=== PATIENT | male | born 1960 | race African-American/Black ===

== ENCOUNTER 2016-11-05 11:13 | Day surgery (SDC) | payer BC ==
[2016-11-05 11:44] VITALS: BMI 26.0
[2016-11-05 12:30] VITALS: TEMP 97.6
[2016-11-05 12:35] VITALS: PULSE 62
[2016-11-05 13:01] VITALS: BP 123/77
--- NOTE | 2016-11-06 11:42 | PATH ---
Surgical Pathology Report Patient Name: ROHINI FERRIS [facility]. Rec. #: [id number] /Age/Gender: 1960 (Age: 56) / M Account: [id number] Location: U-ENDOSCOPY Taken: 11/05/2016 Received: 11/05/2016 Reported: 11/06/2016 Physicians: Yehuda Gonzalez D.O. Specimen(s) Received A: POLYP RECTOSIGMOID B: BX POLYP Clinical History History of polyp Rectosigmoid polyps, anorectal polyp, r/o adenoma Final Diagnosis A. COLON, RECTOSIGMOID, POLYP, POLYPECTOMY: FRAGMENTS OF HYPERPLASTIC POLYP. B. ANORECTAL POLYP, BIOPSY: FRAGMENTS OF MUCOSAL PROLAPSE TYPE POLYP. NO DYSPLASIA/ADENOMA IDENTIFIED. Electronically Signed John Titus M.D. Gross Description A. Received in formalin, labeled "rectosigmoid polyp" are 2 canales, irregular portions of soft tissue measuring 0.3 and 0.4 cm in greatest dimension. The specimens are submitted in toto in one cassette. B. Received in formalin, labeled "biopsy anorectal polyp" are 4 canales, irregular portions of soft tissue ranging from 0.3-0.4 cm in greatest dimension. The specimens are submitted in toto in one cassette. 11/05/201611/05/2016
== END 2016-11-05 13:01 | disposition home or self-care (01) ==
LOC: JASU-ENDO 11:13
PROVIDERS: ATTEND Internal Medicine Gastroenterology
PROC: 0DBP8ZX Excision of Rectum, Via Natural or Artificial Opening Endoscopic, Diagnostic (ICD-10-PCS; principal; 2016-11-05 12:00)
DX: K62.1 Rectal polyp (principal); K64.8 Other hemorrhoids
CPT/HCPCS: 88305-TC

== ENCOUNTER 2022-04-04 04:47 | Day surgery (SDC) | payer OTHER ==
[2022-04-03 13:28] VITALS: BMI 25.7
[2022-04-04] MEDS ORDERED: MIDAZOLAM HCL 2 MG/2 ML SINGLE DOSE VIAL ONE (11:15)
[2022-04-04 11:54] VITALS: TEMP 97.5
[2022-04-04 12:21] VITALS: BP 132/72; PULSE 76; RESP 16
== END 2022-04-04 12:27 | disposition home or self-care (01) ==
LOC: JASU-ENDO 04:47
PROVIDERS: ATTEND Internal Medicine Gastroenterology
PROC: 0DBL8ZX Excision of Transverse Colon, Via Natural or Artificial Opening Endoscopic, Diagnostic (ICD-10-PCS; 2022-04-04)
PROC: 0DBP8ZX Excision of Rectum, Via Natural or Artificial Opening Endoscopic, Diagnostic (ICD-10-PCS; principal; 2022-04-04 11:30)
DX: Z12.11 Encounter for screening for malignant neoplasm of colon (principal); D12.3 Benign neoplasm of transverse colon; D12.8 Benign neoplasm of rectum
CPT/HCPCS: 88305-TC